=== PATIENT | female | born 1990 | race Two or more races ===

== ENCOUNTER 2020-05-10 19:11 | Emergency (ER) | payer OTHER ==
[~2020-05-10] VITALS: Ht 162.6 cm; Wt 59.0 kg
[2020-05-10 19:28] VITALS: BP 141/92
[2020-05-10 20:18] LABS: BASOPHILS % 0.4 % (0.0-2.0); EOSINOPHILS % 0.9 % (0.0-5.0); HEMATOCRIT. 32.7 % (36.0-48.0); HEMOGLOBIN. 10.9 g/dL (12.0-16.0); LYMPHOCYTES % 32.2 % (20.0-50.0); MEAN CORPUSCULAR HEMOGLOBIN 28.7 pg (28.0-32.0); MEAN CORPUSCULAR VOLUME 86.2 fL (81.0-99.0); MONOCYTES % 7.7 % (2.0-8.0); NEUTROPHILS % 58.8 % (40.0-76.0); PLATELET 342 x1000/uL (130-400); RED BLOOD CELL COUNT 3.79 mill/uL (4.2-5.4); RED CELL DISTRIBUTION WIDTH 16.2 % (11.6-14.6)
[2020-05-10 20:23] LABS: CHLORIDE 107 mEq/L (98-107)
[2020-05-10 20:27] LABS: HCG SCREEN NEGATIVE
[2020-05-10 20:44] LABS: CLARITY URINE CLEAR (CLEAR); COLOR URINE RED (YELLOW); KETONES URINE NEGATIVE (NEGATIVE); LEUKOCYTE ESTERASE URINE TRACE (NEGATIVE); NITRITE URINE NEGATIVE (NEGATIVE); OCCULT BLOOD URINE 3+ (NEGATIVE); PH URINE 7.5 (4.5-8.0); PROTEIN URINE 1+ (NEGATIVE); SPECIFIC GRAVITY URINE 1.007 (1.005-1.030); UROBILINOGEN URINE 0.2 E.U./dL (0.2-1.0)
[2020-05-13 04:14] LABS: NEISSERIA GONORRHOEAE NAA Negative (Negative)
== END 2020-05-10 23:12 | disposition home or self-care (01) ==
LOC: ER 19:11
DX: N93.8 Other specified abnormal uterine and vaginal bleeding (principal); R10.2 Pelvic and perineal pain; Z98.890 Other specified postprocedural states
CPT/HCPCS: 36415; 76830; 76856; 80053; 81003; 81025; 84703; 85025; 86850; 86900; 87210; 87491; 87591; 99284